=== PATIENT | female | born 1985 | race African-American/Black ===

== ENCOUNTER 2017-09-16 22:43 | Outpatient (CLI) | payer OTHER ==
[2017-09-17 02:30] VITALS: BP 141/81; RESP 20; TEMP 97.5
--- NOTE | 2017-11-05 08:22 | P.MSEPDOC ---
Presenting Problems - Arrival Data Date of Arrival on Unit: 09/16/17 Time of Arrival on Unit: 22:45 Mode of Transport: Ambulatory - Complaint OB-Reason for Admission/Chief Complaint: Pain Medical History - Information : 4 Para: 3 Term: 0 : 3 Abortions: Spontaneous or Elective: 0 Number of Living Children: 3 - Gestational Age Gestational Age by FIONA (wks/days): 23 Weeks and 5 Days Review of Systems - Review of Systems Constitutional: No problems Breast: No problems ENT: No problems Cardiovascular: No problems Respiratory: No problems Gastrointestinal: No problems Genitourinary: No problems Musculoskeletal: No problems Neurological: No problems Skin: No problems Vital Signs - Temperature Temperature: 97.5 F Temperature Source: Temporal Artery Scan - Pulse Right Brachial Pulse Assessment Method: Automatic Cuff - Respirations Respiratory Rate: 20 Oxygen Delivery Method: Room Air - Blood Pressure Right Arm Blood Pressure: 141/81 Blood Pressure Mean: 101 Blood Pressure Source: Automatic Cuff Medical Screen Scoring (Pre) - Cervical Exam Dilation: 0 cm = 0 Membranes: Intact - Uterine Contractions Frequency: N/A Duration: N/A Intensity: N/A - Maternal Vital Signs Maternal Temperature: N/A Maternal Blood Pressure: N/A Signs of Preeclampsia: N/A Maternal Respirations: N/A - Pain Assessment Pain Location and Character: Abdomen Pain Scale Used: Numeric (1 - 10) Pain Intensity: 6 Pain Radiation Location: none Pain Frequency: Constant - Maternal Trauma Maternal Trauma: N/A - Assessment Baseline FHR: 140 Heart Rate - NICHD Category: Category I (Normal) = 0 Position: N/A Station: N/A - Total Score Total Score (Pre): 0 - Level of Risk Level of Risk: N/A Physician Notification (Pre) - Physician Notified Physician Notified Date: 09/16/17 Physician Notified Time: 23:11 Physician/Practitioner Notifed:: Dr. Ryder Spoke With: Dr. Ryder New Order Received: Yes - Notification Comment Comment: obtain FFN and then do cervical exam, if pt is closed thick and high may discard FFN and discharge pt home, follow up with OB on monday at scheduled appt Disposition - Disposition OB Disposition: Triage, Discharge to home, Written follow up instructions reviewed Discharge Date: 09/16/17 Discharge Time: 23:42 I agree with the RN Medical Screening Exam: Yes Risk & Benefit of care provided described in d/c instruction: Yes Diagnosis: FALSE LABOR BEFORE 37 COMPLETED WEEKS OF GEST, THIRD TRI
== END 2017-09-16 23:44 | disposition home or self-care (01) ==
LOC: FBPOP 22:43
PROVIDERS: ATTEND Obstetrics & Gynecology Obstetrics
DX: O47.02 False labor before 37 completed weeks of gestation, second trimester (principal); Z3A.23 23 weeks gestation of pregnancy
CPT/HCPCS: 99213

== ENCOUNTER 2017-11-01 18:51 | Outpatient (CLI) | payer OTHER ==
[2017-11-01 20:31] VITALS: BP 126/58; PULSE 98; RESP 16; TEMP 98
--- NOTE | 2017-11-01 21:59 | P.MSEPDOC ---
Presenting Problems - Arrival Data Date of Arrival on Unit: 11/01/17 Time of Arrival on Unit: 18:51 Mode of Transport: Ambulatory Medical History - Information : 4 Para: 3 Term: 0 : 3 Abortions: Spontaneous or Elective: 0 Number of Living Children: 3 - Gestational Age Gestational Age by FIONA (wks/days): 30 Weeks and 2 Days Vital Signs - Temperature Temperature: 98 F Temperature Source: Oral - Pulse Right Brachial Pulse Rate: 98 Pulse Assessment Method: Automatic Cuff - Respirations Respiratory Rate: 16 Oxygen Delivery Method: Room Air O2 Sat by Pulse Oximetry: 100 - Blood Pressure Right Arm Blood Pressure: 126/58 Blood Pressure Mean: 80 Blood Pressure Source: Automatic Cuff Medical Screen Scoring (Post) - Cervical Exam Dilation: 0 cm = 0 Membranes: Intact - Uterine Contractions Frequency: N/A Duration: N/A Intensity: N/A - Maternal Vital Signs Maternal Temperature: N/A - Pain Assessment Pain Location and Character: Abdomen Pain Scale Used: Numeric (1 - 10) Pain Intensity: 5 Pain Description: *Acute, Aching Pain Radiation Location: no Pain Frequency: Intermittent Pain Duration: 1 Pain Duration Units: Days Pain Aggravating Factors: Coughing - Assessment Heart Rate: 135 Heart Rate - NICHD Category: Category I (Normal) = 0 NST: Reactive - Total Score Total Score (Post): 0 - Post Treatment Level of Risk Post Treatment Level of Risk: Low (0-5) Physician Notification (Post) - Physician Notified Physician Notified Date: 11/01/17 Physician Notified Time: 19:50 New Order Received: Yes - Notification Comment Comment: D/c to ED department for follow up on cough Disposition - Disposition OB Disposition: Discharge to home, Written follow up instructions reviewed Discharge Date: 11/01/17 Discharge Time: 20:08 I agree with the RN Medical Screening Exam: No Risk & Benefit of care provided described in d/c instruction: No Diagnosis: 30 WEEKS GESTATION OF
== END 2017-11-01 20:08 | disposition home or self-care (01) ==
LOC: FBPOP 18:51
PROVIDERS: ATTEND Obstetrics & Gynecology
DX: O26.893 Other specified pregnancy related conditions, third trimester (principal); R10.9 Unspecified abdominal pain; Z3A.30 30 weeks gestation of pregnancy
CPT/HCPCS: 59025; G0463; 99213

== ENCOUNTER 2017-11-01 20:12 | Emergency (ER) | payer OTHER ==
[2017-11-01 20:18] VITALS: BP 111/70; PULSE 79; TEMP 97.7
--- NOTE | 2017-11-01 20:57 | XR ---
EXAMINATION TYPE: XR chest 2V DATE OF EXAM: 11/01/2017 COMPARISON: 08/10/2012 HISTORY: Cough TECHNIQUE: Frontal and lateral views of the chest are obtained. FINDINGS: Heart and mediastinum are normal. Lungs are clear. Diaphragm is normal. Bony thorax appear s normal. IMPRESSION: Normal chest. No change.
[2017-11-01 21:21] VITALS: RESP 18
--- NOTE | 2017-11-01 21:40 | ED ---
General Adult HPI - General Chief complaint: Upper Respiratory Infection Stated complaint: Cough (27 weeks ) Time Seen by Provider: 11/01/17 20:21 Source: patient, RN notes reviewed Mode of arrival: ambulatory Limitations: no limitations - History of Present Illness Initial comments: 31-year-old female presents to the emergency department for a chief complaint of cough times one week. Patient states the cough is dry but it does not seem to be getting better. Patient states she also feels congested. Patient states she has had a minor sore throat as well. Denies ear pain or headache. Patient is currently 23 weeks . Patient admits to asthma but denies any wheezing or shortness of breath at this time. Patient denies smoking. Patient denies fevers or chills at home. Patient denies any abdominal plain or vaginal bleeding. No concerns at this time.Patient has no other complaints at this time including shortness of breath, chest pain, abdominal pain, nausea or vomiting, headache, or visual changes. - Related Data Home Medications Medication Instructions Recorded Confirmed Albuterol Inhaler [Ventolin Hfa 1 puff INHALATION Q4H PRN 02/09/15 11/01/17 Inhaler] Pnv,Calcium 72/Iron/Folic Acid 1 tab PO DAILY 09/16/17 11/01/17 [ Plus Tablet] Allergies Allergy/AdvReac Type Severity Reaction Status Date / Time No Known Allergies Allergy Verified 11/01/17 20:18 Review of Systems ROS Statement: Those systems with pertinent positive or pertinent negative responses have been documented in the HPI. ROS Other: All systems not noted in ROS Statement are negative. Past Medical History Past Medical History: Asthma, Fibromyalgia History of Any Multi-Drug Resistant Organisms: None Reported Additional Past Surgical History / Comment(s): LEEP procedure Past Anesthesia/Blood Transfusion Reactions: No Reported Reaction Past Psychological History: No Psychological Hx Reported Smoking Status: Never smoker General Exam Limitations: no limitations General appearance: alert, in no apparent distress Head exam: Present: atraumatic, normocephalic, normal inspection Eye exam: Present: normal appearance ENT exam: Present: normal exam, normal oropharynx (Non-erythematous oropharynx. No exudates bilaterally. Uvula midline. No signs of peritonsillar abscess.) , mucous membranes moist, TM's normal bilaterally, normal external ear exam Neck exam: Present: normal inspection, full ROM. Absent: tenderness, meningismus, lymphadenopathy Respiratory exam: Present: normal lung sounds bilaterally. Absent: respiratory distress, wheezes (No wheezing noted throughout the lungs.), rales, rhonchi, stridor, chest wall tenderness, decreased breath sounds, prolonged expiratory Cardiovascular Exam: Present: regular rate, normal rhythm, normal heart sounds. Absent: systolic murmur, diastolic murmur, rubs, gallop, clicks Course Vital Signs 11/01/17 11/01/17 20:16 20:45 Temperature 97.7 F Pulse Rate 79 Respiratory 20 18 Rate Blood Pressure 111/70 O2 Sat by Pulse 100 Oximetry Medical Decision Making - Medical Decision Making 31-year-old female presents to the emergency department for a chief complaint of cough times one week. Patient does have a history of asthma and is currently 23 weeks . Patient denies any wheezing or shortness of breath at this time. No difficulty breathing. Patient also admits to mild congestion. No fevers. On exam no tenderness of the frontal or maxillary sinuses. Throat appears nonerythematous. Lungs are clear to auscultation bilaterally. Chest x-ray negative for pneumonia. Strep test negative as well. Culture will be sent. At this time patient agrees antibiotics are not needed. Patient aware she can take benadryl for congestion. She will follow up with OB tomorrow and discuss option of inhaler which she has been on in the past. Patient aware she can return to the emergency Department if she has any worsening symptoms. - Lab Data Lab Results 11/01/17 Range/Units 20:38 Group A Strep Rapid Negative (Negative) Disposition Clinical Impression: Upper respiratory infection Disposition: HOME SELF-CARE Condition: Good Instructions: Upper Respiratory Infection (ED) Additional Instructions: Please monitor for any worsening symptoms or fever and return if these occur. Follow-up with OB tomorrow. Is patient prescribed a controlled substance at d/c from ED?: No Referrals: Skinny Portillo MD [STAFF PHYSICIAN] - 1-2 days Time of Disposition: 21:39
== END 2017-11-01 21:45 | disposition home or self-care (01) ==
LOC: EC 20:12
DX: O99.512 Diseases of the respiratory system complicating pregnancy, second trimester (principal); J06.9 Acute upper respiratory infection, unspecified; Z3A.23 23 weeks gestation of pregnancy
CPT/HCPCS: 71046; 87081; 87430; 99283

== ENCOUNTER 2017-12-18 22:27 | Outpatient (CLI) | payer OTHER ==
[2017-12-19 00:51] VITALS: BP 114/58; PULSE 96; RESP 16; TEMP 98.6
[2017-12-19] MEDS ORDERED: BETAMET ACET-BETAMETH SOD PHOS 6 MG/ML VIAL IM SCH (01:00)
[2017-12-19] MEDS ORDERED: LACTATED RINGERS 1,000 ML IV SCH (01:35)
[2017-12-19] MEDS ORDERED: MAGNESIUM SULFATE-WATER PMX 4 GM in WATER FOR INJECTION 1 50ML.BAG IVPB STA (02:11)
[2017-12-19] MEDS ORDERED: MAGNESIUM SULFATE-WATER PMX 20 GM in WATER FOR INJECTION 1 500ML.BAG IV SCH (02:15)
--- NOTE | 2017-12-19 02:25 | P.HPOB ---
History of Present Illness H&P Date: 12/19/17 Chief Complaint: Intrauterine at 33 weeks: labor Patient is a 32-year-old at 33 weeks gestation who has been seen through [facility] for this . She relates that due to history of deliveries 2 at both 35 and 36 weeks she had been on progesterone injections to try and stay off any labor. She had what she describes as uneventful up until the last few days. Apparently approximately 2- 3 weeks ago she and her physician stopped her progesterone injections at between 31 and 32 weeks rather than continuing through 35-36. Since that time she began having contractions. She was seen in [place] and hospital there last week and then again on Monday for contractions. She was actually monitored for an extended period of time at the hospital in [place] and had received a dose of Celestone for lung maturity last night at approximately 10 PM. She was supposed to follow up again tonight at the same hospital for repeat dose of steroids and reevaluation. She relates at that time she was told that she was dilated to 1 cm but she had previously been told she was dilated to 3 cm so she is relatively confused about her discharge. She was not started by her description on any tocolytics and was not provided with with magnesium sulfate or any other treatment regimens to try and keep her from going into labor but was simply discharged home and told to follow up today. However, she actually lives up in the [place] area and received a ride up to [place] on last night at approximately 2 AM after getting her steroid shot in being discharged. She could not find a ride back down to the [place] for her injection and therefore came here. She related that she was having vaginal bleeding and passage of clots as well as having an increase in pain consistent with contractions. I did deliver one of her other babies, so she is at least well known to me. By history she is relatively knowledgeable and compliant so what she is describing sounds like probably what she believed to be going on. In labor and delivery here initially she did had no real contractions and while her initial exam showed her to be 3 cm dilated she was resting relatively comfortably. It did take a long time for us to be able to get the records from [facility] that we had some idea of exactly how far along she was and what treatments had been offered. During her time in labor and delivery harsh she began to have a significant increase in contractions and made some cervical change from 3 and 60 to approximate 3 and 80% effaced. Due to this change and her extreme prematurity, we'll initiate magnesium sulfate therapy and try and call her labor progress. If were able to halt her labor progress most likely we will plan transfer to a tertiary care center as we're unable to take care of babies below 35 weeks. This was all explained to her and she has full understanding of what my concerns are and what the goals of treatment and plan are. On physical exam her vital signs are otherwise stable and she is afebrile. Her heart is regular and her lungs are clear. Abdomen is soft gravid uterus noted. She is measuring small for dates. Will plan ultrasound if at all possible to assess amniotic fluid level. This however, may not occur until the a.m. depending on availability of ultrasound. Her extremities are otherwise without edema or pain. Assessment intrauterine at 33 weeks 4 days gestation: labor: History of deliveries 2 Plan magnesium sulfate therapy at least initially for tocolyse this although, if we're unable to stop labor is a magnesium sulfate will be used to stabilize brain. Past medical history sickle cell trait Past surgical history she believed she had a LEEP for cervical dysplasia or cervical cancer ALLERGIES none Social history she denies alcohol, tobacco, or illicit drug use. She works as a nurse's expanded duty dental assistant Family history unremarkable Past Medical History Past Medical History: Asthma, Fibromyalgia History of Any Multi-Drug Resistant Organisms: None Reported Additional Past Surgical History / Comment(s): LEEP procedure Past Anesthesia/Blood Transfusion Reactions: No Reported Reaction Smoking Status: Never smoker Medications and Allergies Home Medications Medication Instructions Recorded Confirmed Type No Known Home Medications 12/19/17 12/19/17 History Allergies Allergy/AdvReac Type Severity Reaction Status Date / Time No Known Allergies Allergy Verified 12/19/17 00:45 Exam Osteopathic Statement: *. No significant issues noted on an osteopathic structural exam other than those noted in the History and Physical/Consult. Vital Signs Temp Pulse Resp BP 12/18/17 22:30 98.6 F 96 16 114/58 Intake and Output 12/18/17 12/18/17 12/19/17 14:59 22:59 06:59 Other: Weight 60.781 kg
--- NOTE | 2017-12-19 05:40 | P.DS ---
Providers Expected date of discharge: 12/19/17 Attending physician: Abhay French Primary care physician: Stated None Hospital Course: Patient has been monitored now for a number of hours and contractions have decreased from every 2-4 minutes to closer to every 7 minutes. She is on mag sulfate 2 g are running per hour at this time. She is tolerating the medication well. I did speak with [facility] but transfer as she is only 33 weeks 4 days gestation and we are unable to care for her below 35 weeks if she was to have her baby therefore will plan transfer of care. She is made no cervical change since approximately 220 this morning which is over 3 hour timeframe with no cervical change. Risks and benefits of transfer discussed with patient in detail and all questions were answered for her prior to her being discharged and transferred. Patient Condition at Discharge: Stable Plan - Discharge Summary New Discharge Prescriptions: No Action No Known Home Medications Discharge Medication List No Known Home Medications 12/19/17 [History]
== END 2017-12-19 06:16 | disposition other institution (70) ==
LOC: FBPOP 22:27
PROVIDERS: ATTEND Obstetrics & Gynecology
DX: O60.03 Preterm labor without delivery, third trimester (principal); Z3A.33 33 weeks gestation of pregnancy
CPT/HCPCS: 59025; 96361; 96365; 96366; 96372; G0463; J0702; J3475 ×2; 99215

== ENCOUNTER 2017-12-24 16:18 | Outpatient (CLI) | payer OTHER ==
[2017-12-24 17:47] VITALS: BP 108/61; PULSE 61; RESP 18; TEMP 99
--- NOTE | 2017-12-24 20:05 | P.MSEPDOC ---
Presenting Problems - Arrival Data Date of Arrival on Unit: 12/24/17 Time of Arrival on Unit: 16:33 Mode of Transport: Ambulatory - Complaint OB-Reason for Admission/Chief Complaint: Decreased Movement Comment: pt arrived c/o decreased movement. pt is a DOM has had prental care at [place] Medical History - Information : 4 Para: 3 Term: 0 : 3 Abortions: Spontaneous or Elective: 0 Number of Living Children: 3 - Gestational Age Gestational Age by FIONA (wks/days): 33 Weeks and 5 Days - History Comment: care at [place] Review of Systems - Review of Systems Constitutional: No problems Breast: No problems ENT: No problems Cardiovascular: No problems Respiratory: No problems Gastrointestinal: No problems Genitourinary: No problems Musculoskeletal: No problems Vital Signs - Temperature Temperature: 99 F Temperature Source: Oral - Pulse Right Brachial Pulse Rate: 61 Pulse Assessment Method: Automatic Cuff - Respirations Respiratory Rate: 18 Oxygen Delivery Method: Room Air - Blood Pressure Right Arm Blood Pressure: 108/61 Blood Pressure Mean: 76 Blood Pressure Source: Automatic Cuff Medical Screen Scoring (Pre) - Cervical Exam Dilation: 1-3 cm = 1 Membranes: Intact - Uterine Contractions Frequency: > 5 minutes apart = 1 Duration: > 40 seconds = 2 Intensity: N/A - Maternal Vital Signs Maternal Temperature: N/A Maternal Blood Pressure: N/A Signs of Preeclampsia: N/A Maternal Respirations: N/A - Pain Assessment Pain Scale Used: Numeric (1 - 10) Pain Intensity: 0 Pain Management Goal: 0 Pain Behavior: Vocalization - Maternal Trauma Maternal Trauma: N/A - Assessment Baseline FHR: 130 Heart Rate - NICHD Category: Category I (Normal) = 0 NST: Reactive Position: N/A Station: N/A - Total Score Total Score (Pre): 4 Physician Notification (Pre) - Physician Notified Physician Notified Date: 12/24/17 Physician Notified Time: 17:15 Spoke With: dr michael Cortés Order Received: Yes - Notification Comment Comment: reactiver NST pt having mild irregular contractions but denies feeling them. no change in cervix from prior exam on Monday at [place] Disposition - Disposition OB Disposition: Discharge to home Discharge Date: 12/24/17 Discharge Time: 17:30 I agree with the RN Medical Screening Exam: Yes Risk & Benefit of care provided described in d/c instruction: Yes Diagnosis: DECREASED MOVEMENTS, THIRD TRIMESTER, UNSP
== END 2017-12-24 17:30 | disposition home or self-care (01) ==
LOC: FBPOP 16:18
PROVIDERS: ATTEND Obstetrics & Gynecology
DX: O36.8130 Decreased fetal movements, third trimester, not applicable or unspecified (principal); Z3A.33 33 weeks gestation of pregnancy
CPT/HCPCS: 59025; G0463; 99213

== ENCOUNTER 2021-12-29 17:35 | Emergency (ER) | payer OTHER ==
[2021-12-29 18:06] VITALS: BP 114/80; PULSE 92; RESP 20; TEMP 98.7
[2021-12-29] MEDS ORDERED: ACETAMINOPHEN TAB 325 MG TAB PO STA (19:49)
--- NOTE | 2021-12-29 19:49 | ED ---
URI HPI - General Chief Complaint: Upper Respiratory Infection Stated Complaint: covid test Time Seen by Provider: 12/29/21 19:24 Source: patient, RN notes reviewed, old records reviewed Mode of arrival: ambulatory Limitations: no limitations - History of Present Illness Initial Comments: Patient presents with sore throat body aches and cough for 3 days. She does have a history of asthma and fibromyalgia. She denies any chest pain or difficulty in breathing. She has not been vaccinated against coronavirus. She is a nonsmoker. MD Complaint: cough, sore throat, nasal congestion, other (Body aches) -: days(s) (3) Severity scale (1-10): 7 Quality: aching Consistency: constant Treatments Prior to Arrival: none - Related Data Previous Rx's Medication Instructions Recorded predniSONE 50 mg PO DAILY #5 tab 12/29/21 Allergies Allergy/AdvReac Type Severity Reaction Status Date / Time No Known Allergies Allergy Verified 12/29/21 18:06 Review of Systems ROS Statement: Those systems with pertinent positive or pertinent negative responses have been documented in the HPI. ROS Other: All systems not noted in ROS Statement are negative. Past Medical History Past Medical History: Asthma, Fibromyalgia History of Any Multi-Drug Resistant Organisms: None Reported Additional Past Surgical History / Comment(s): LEEP procedure Past Anesthesia/Blood Transfusion Reactions: No Reported Reaction Past Psychological History: No Psychological Hx Reported Smoking Status: Never smoker Past Alcohol Use History: None Reported Past Drug Use History: None Reported General Exam Limitations: no limitations General appearance: alert, in no apparent distress Head exam: Present: atraumatic Eye exam: Present: normal appearance. Absent: scleral icterus, conjunctival injection, periorbital swelling, periorbital tenderness ENT exam: Present: normal exam, normal oropharynx, mucous membranes moist Neck exam: Present: normal inspection, full ROM. Absent: tenderness, meningismus Respiratory exam: Present: normal lung sounds bilaterally. Absent: respiratory distress, wheezes, rales, rhonchi, stridor, chest wall tenderness, accessory muscle use Cardiovascular Exam: Present: regular rate Back exam: Absent: tenderness, CVA tenderness (R), CVA tenderness (L) Neurological exam: Present: alert, oriented X3, normal gait Psychiatric exam: Present: normal affect, normal mood Skin exam: Present: warm, dry. Absent: cyanosis, diaphoretic, petechiae, pallor Course Vital Signs 12/29/21 18:04 Temperature 98.7 F Pulse Rate 92 Respiratory 20 Rate Blood Pressure 114/80 O2 Sat by Pulse 99 Oximetry Medical Decision Making - Medical Decision Making Patient presents with sore throat, cough, and body aches for 3 days. She is coronavirus postiive. She states that she has not been vaccinated against coronavirus. She does have a history of asthma. Vital signs are stable oxygen saturation is 99% on room air. Lung sounds are clear to auscultation however with the patient's cough and history of asthma she will be given prednisone for five days. She was directed not to take Motrin while taking prednisone. She was offered Paxlovid and declined. She was directed to increase her fluid intake, Tylenol for fevers, pain or discomfort. I also recommended that she take vitamin C, vitamin D and zinc to improve immune health. She is agreeable to this plan of care. - Lab Data Lab Results 12/29/21 Range/Units 18:10 Coronavirus (PCR) Detected A (Not Detectd) Disposition Clinical Impression: COVID-19 Disposition: HOME SELF-CARE Condition: Good Instructions (If sedation given, give patient instructions): Upper Respiratory Infection (ED), COVID-19 (Coronavirus Disease 2019) (ED) Additional Instructions: Increase your fluid intake, take Tylenol as needed for pain. Use albuterol inhaler as needed. Take the prednisone as prescribed for the next 5 days. Do not take Motrin while taking prednisone. I recommended taking vitamin C, vitamin D and zinc to improve immune health. Prescriptions: predniSONE 50 mg PO DAILY #5 tab Is patient prescribed a controlled substance at d/c from ED?: No Referrals: Nonstaff,Physician [Primary Care Provider] - 1-2 days Time of Disposition: 19:48
== END 2021-12-29 21:23 | disposition home or self-care (01) ==
LOC: EC 17:35
DX: U07.1 COVID-19 (principal); J45.909 Unspecified asthma, uncomplicated
CPT/HCPCS: 87635; 99284